=== PATIENT | female | born 1980 | race Caucasian/White ===

== ENCOUNTER → 2017-05-21 | Outpatient (CLI) | payer OTHER ==
[~2017-05-21] MED LIST: CEPH-570 PO
[2017-05-21 13:32] LABS: ALT/SGPT 20 U/L (12-78); AST/SGOT 10 U/L (15-37); BLOOD UREA NITROGEN 15 mg/dl (7-18); BUN/CREATININE RATIO 17.7 (10-20); CALCIUM 8.6 mg/dl (8.5-10.1); CARBON DIOXIDE 28 mmol/L (21-32); CHLORIDE 108 mmol/L (98-107); CHOLESTEROL 212 mg/dl (0-200); CREATININE 0.85 mg/dl (0.60-1.20); GLUCOSE,FASTING 81 mg/dl (70-99); POTASSIUM 4.4 mmol/L (3.5-5.1); SODIUM 140 mmol/L (136-145)
[2017-05-21 13:34] LABS: ALB/GLOB RATIO 1.2 (0.9-2); ALKALINE PHOSPHATASE 88 U/L (45-117); CHOLESTEROL/HDL RATIO 4.8; HDL CHOLESTEROL 44 mg/dl; LDL CHOLESTEROL CALCULATED 142 mg/dl; TRIGLYCERIDES 132 mg/dl (0-150); VERY LOW DENSITY LIPOPROT CALC 26 mg/dl
== END | disposition home or self-care (01) ==
LOC: C.LABPBG 08:37
PROVIDERS: ATTEND Physician Assistant
DX: Z00.00 Encounter for general adult medical examination without abnormal findings (principal)

== ENCOUNTER → 2017-11-22 | Outpatient (CLI) | payer OTHER | END | disposition home or self-care (01) | LOC: C.PAPS 15:01 | PROVIDERS: ATTEND Physician Assistant | DX: Z12.4 Encounter for screening for malignant neoplasm of cervix (principal) ==

== ENCOUNTER 2018-01-09 21:07 | Emergency (ER) | payer OTHER ==
[~2018-01-09] VITALS: Ht 162.6 cm; Wt 62.9 kg
[~2018-01-09 21:07] MED LIST changes: +AZITTAB PO
[2018-01-09 21:13] VITALS: TEMP 37.5; Ht 162.6 cm; Wt 62.9 kg
--- NOTE | 2018-01-09 21:30 | EMERGENCY ROOM VISIT NOTE ---
History Report prepared by Emily: Kunal Mota Under the Supervision of: Dr. Michael Pimentel M.D. First contact with patient: 21:22 Chief Complaint: FEVER Stated Complaint: FEVER,COUGH,CONGESTION History of Present Illness The patient is a 37 year old female who presents to the Emergency Room with complaints of a worsening fever that began two days ago. She reports she developed a fever, cough, and congestion two day ago. The patient states that she went to Urgent care that day where they prescribed her Z Pac. She reports that she was not swabbed for the flu. She states that she has been taking her medication, but reports that she has been getting worse. The patient states that her cough turned into more of a "barking" cough. She reports that her fever worsened to 102.9 today. The patient denies medical problems, taking medications, nausea, vomiting, a possible , and coughing up blood. She reports she did have a flu shot this year. Source of History: patient Onset: two days ago Position: other (global) Quality: other (102.9) Timing: worsening Modifying Factors (Relieving): other (Z Pac) Associated Symptoms: + cough, No nausea, No vomiting Note: Associated symptoms: congestion. Review of Systems See HPI for pertinent positives and negatives. A total of ten systems were reviewed and were otherwise negative. Past Medical & Surgical Medical Problems: (1) Leakage, amniotic fluid (2) No Known Active Medical Problems (3) with 38 completed weeks gestation Family History Patient reports no known family medical history. Social History Smoking Status: Never Smoker Alcohol Use: occasionally Marital Status: Housing Status: lives with family Occupation Status: employed Current/Historical Medications Scheduled Azithromycin (Zithromax Z-Clif), 1 PKT PO UD Oseltamivir (Tamiflu), 75 MG PO BID Allergies Coded Allergies: No Known Allergies (Unverified , 01/09/18) Physical Exam Vital Signs Date Time Temp Pulse Resp B/P (MAP) Pulse Ox O2 Delivery O2 Flow Rate FiO2 01/09/18 22:45 73 16 93/60 97 01/09/18 21:13 37.5 94 16 112/77 96 Room Air Physical Exam Physical Exam GENERAL: She is oriented to person, place, and time. She appears well- developed and well-nourished. She does not appear distressed. ____ HENT: Exam performed. Head: Normocephalic and atraumatic. Right Ear: External ear normal. No mastoid tenderness. Left Ear: External ear normal. No mastoid tenderness. Mouth/Throat: The oropharynx is clear and moist. No trismus in the jaw. No dental abscesses or uvula swelling. No oropharyngeal exudate or tonsillar abscesses. ____ EYES: Conjunctivae and EOM are normal. Pupils are equal, round, and reactive to light. Right eye exhibits no discharge. Left eye exhibits no discharge. No scleral icterus. ____ NECK: Normal range of motion. Neck supple. No JVD present. No spinous process tenderness present. No carotid bruit present. No rigidity. No tracheal deviation and normal range of motion present. No Brudzinski's sign and no Kernig 's sign noted. ____ CV: Normal rate, regular rhythm, normal heart sounds and intact distal pulses. There is no peripheral edema. Palpable radial pulses bue. ____ PULM/CHEST: Effort normal and breath sounds normal. No respiratory distress. No stridor. She has no wheezes. She has no rales. Chest Wall: She exhibits no tenderness. ____ ABD: The abdomen is soft. Bowel sounds are normal. She has no distension. No mass is present. There is no tenderness. There is no rebound, no guarding, no Torres's sign and no tenderness at McBurney's point. Rovsig negative MUSC/SKEL: Normal range of motion. There is no peripheral edema, tenderness or deformity. LYMPH: No cervical adenopathy. ____ NEURO: She is alert and oriented to person, place, and time. She has normal strength. No cranial nerve deficit or sensory deficit. Coordination and gait normal. GCS eye subscore is 4. GCS verbal subscore is 5. GCS motor subscore is 6. Cerebellar tests wnl. ____ SKIN: Skin is warm and dry. She is not diaphoretic. ____ PSYCH: She has a normal mood and affect. Her behavior is normal. Judgment and thought content normal. ____ Medical Decision & Procedures ER Provider Diagnostic Interpretation: X-ray: Per my interpretation, radiologist review. TWO VIEW CHEST CLINICAL HISTORY: Cough. FINDINGS: PA and lateral chest radiographs are obtained. No prior studies are available for comparison at the time of dictation. The cardiomediastinal silhouette is unremarkable. The lungs and pleural spaces are clear. There is no pneumothorax. The bony thorax appears intact. IMPRESSION: No active disease in the chest. Electronically signed by: Silvio Yepez M.D. 01/09/2018 10:03 PM Dictated Date/Time: 01/09/2018 10:03 PM Laboratory Results Test 01/09/18 21:37 01/09/18 21:40 Urine Test NEG (NEG) Influenza Type A Antigen POS for Influ A (NEG) Influenza Type B Antigen Neg for Influ B (NEG) Laboratory results reviewed by me Medications Administered Medications (Trade) Dose Ordered Sig/Sree Route Start Time Stop Time Status Last Admin Dose Admin Oseltamivir Phosphate (Tamiflu Cap) 75 mg NOW STAT PO 01/09/18 22:26 01/09/18 22:27 DC 01/09/18 22:36 75 MG ED Course 2123: The patient was evaluated in room C08. A complete history and physical exam was performed. 2221: Patient's vital signs are stable. The patient's chest x-ray and test were negative. Her influenza was positive. She was advised to stop taking Amoxicillin and start taking Tamiflu. Her first dose of Tamiflu was given in the hospital. DISCHARGE - Plan of care discussed with patient and questions answered. The patient was given both verbal and printed discharge instructions. The patient verbalized understanding and ability to comply. The patient is to seek outpatient follow up as noted in the discharge instructions. The patient verbalized understanding and ability to comply. The patient is discharged in stable condition. The patient was instructed to return for worsening symptoms. 2226: Ordered Tamiflu Cap 75 mg PO. Medical Decision Patient's vital signs are stable. The patient's chest x-ray and test were negative. Her influenza was positive. She was advised to stop taking Amoxicillin and start taking Tamiflu. Her first dose of Tamiflu was given in the hospital. DISCHARGE - Plan of care discussed with patient and questions answered. The patient was given both verbal and printed discharge instructions. The patient verbalized understanding and ability to comply. The patient is to seek outpatient follow up as noted in the discharge instructions. The patient verbalized understanding and ability to comply. The patient is discharged in stable condition. The patient was instructed to return for worsening symptoms. Medication Reconcilliation Current Medication List: was personally reviewed by me Blood Pressure Screening Patient's blood pressure: Normal blood pressure Impression Primary Impression: Influenza Scribe Attestation The scribe's documentation has been prepared under my direction and personally reviewed by me in its entirety. I confirm that the note above accurately reflects all work, treatment, procedures, and medical decision making performed by me. The chart was completed utilizing [employer] Speech voice recognition software. Grammatical errors, random word insertions, pronoun errors, and incomplete sentences are an occasional consequence of this system due to software limitations, ambient noise, and hardware issues. Any formal questions or concerns about the content, text, or information contained within the body of this dictation should be directly addressed to the physician for clarification. Departure Information Dispostion Home / Self-Care Prescriptions Oseltamivir (Tamiflu) 75 Mg Cap 75 MG PO BID, #10 CAP Prov: Michael Pimentel M.D. 01/09/18 Referrals No Doctor, Assigned (PCP) [facility] Forms HOME CARE DOCUMENTATION FORM, IMPORTANT VISIT INFORMATION Patient Instructions ED Flu, My [facility]
--- NOTE | 2018-01-09 22:05 | DIAGNOSTIC IMAGING REPORT ---
TWO VIEW CHEST CLINICAL HISTORY: Cough. FINDINGS: PA and lateral chest radiographs are obtained. No prior studies are available for comparison at the time of dictation. The cardiomediastinal silhouette is unremarkable. The lungs and pleural spaces are clear. There is no pneumothorax. The bony thorax appears intact. IMPRESSION: No active disease in the chest. Electronically signed by: Silvio Yepez M.D. 01/09/2018 10:03 PM Dictated Date/Time: 01/09/2018 10:03 PM
[2018-01-09 22:17] LABS: INFLUENZA B ANTIGEN Neg for Influ B (NEG)
[2018-01-09] MEDS ORDERED: OSELTAMIVIR PHOSPHATE 75 MG CAP PO STA (22:26)
[2018-01-09] MEDS ORDERED: OSEL75CA12 PO (22:28)
[2018-01-09 22:45] VITALS: BP 93/60; PULSE 73; O2SAT 97
== END 2018-01-09 22:46 | disposition home or self-care (01) ==
LOC: C.EDB 21:08 → C.EDC 22:46
DX: J10.1 Influenza due to other identified influenza virus with other respiratory manifestations (principal)

== ENCOUNTER → 2018-05-23 | Outpatient (CLI) | payer OTHER ==
[~2018-05-23] MED LIST changes: -CEPH-570 PO; +OSEL75CA12 PO
[2018-05-23 14:20] LABS: BLOOD UREA NITROGEN 14 mg/dl (7-18); CALCIUM 8.4 mg/dl (8.5-10.1); CARBON DIOXIDE 27 mmol/L (21-32); CHOLESTEROL 196 mg/dl (0-200); CREATININE 0.77 mg/dl (0.60-1.20); GLUCOSE,FASTING 76 mg/dl (70-99); LDL CHOLESTEROL CALCULATED 122 mg/dl; POTASSIUM 3.7 mmol/L (3.5-5.1); SODIUM 139 mmol/L (136-145)
== END | disposition home or self-care (01) ==
LOC: C.LABPBG 09:10
PROVIDERS: ATTEND Physician Assistant
DX: Z00.00 Encounter for general adult medical examination without abnormal findings (principal)